=== PATIENT | male | born 2000 | race Two or more races ===

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

== ENCOUNTER 2021-02-28 07:17 | Outpatient (CLI) | payer OTHER | END 2021-02-28 07:39 | disposition home or self-care (01) | LOC: TOM 07:17 | PROVIDERS: ATTEND General Practice | DX: Z00.01 Encounter for general adult medical examination with abnormal findings (principal); Z11.3 Encounter for screening for infections with a predominantly sexual mode of transmission; Z11.4 Encounter for screening for human immunodeficiency virus [HIV]; Z12.11 Encounter for screening for malignant neoplasm of colon; Z13.0 Encounter for screening for diseases of the blood and blood-forming organs and certain disorders involving the immune mechanism; Z13.1 Encounter for screening for diabetes mellitus ==